=== PATIENT | male | born 1930 | race Caucasian/White ===

== ENCOUNTER 2017-03-14 14:13 | Emergency (ER) | payer OTHER, MEDICARE ==
[2017-03-14 14:22] VITALS: BP 128/70; PULSE 63; TEMP 98.8; BMI 25.0
[2017-03-14] MEDS ORDERED: DIPHTH,PERTUSS(ACELL),TET 0.5 ML DISP.SYRIN IM ONE (14:50)
--- NOTE | 2017-03-14 14:50 | PDOC ---
History of Present Illness - History of Present Illness Initial Comments: 03/14/17 14:52 Patient is an 87 year old male, accompanied by son, with significant medical hx of HTN, CVA and pacemaker who is presenting to the ED s/p mechanical fall today. Today the patient was walking inside at his sons house when he tripped over a step going up. The patient states that he fell forward, landing on his face and chest. He sustained a laceration to his chin and complains of rib cage pain. The patient denies trauma to his neck or to the back of his head. He also denies any LOC, weakness, or shortness of breath. Son states that he found the patient one minute after he fell and that he was alert when he found him. The fall was not witnessed otherwise. The patient walks with a walker to ambulate for general assistance. He is temporarily visiting his son. Patient lives in [place] with his . Social Hx: Every day ETOH user, patient has 1-2 alcoholic beverages a day. No tobacco use. No recreational drug use. <Kim Stiles - Last Filed: 03/14/17 14:52> - History of Present Illness Initial Comments: 03/14/17 16:06 According to his son, the patient tripped on a step, struck his chin on the ground, sustaining a laceration. There was no loss of consciousness. He did not strike his head or injure his neck. Remained fully alert.. Physical exam is noted. No pain or injury to the head or neck. Mild pain with compression of the rib cage, without deformity, point tenderness on any of the ribs, and with full breath sounds and no splinting. Procedure note: 1 cm laceration on the chin was scrubbed and irrigated with normal saline, explored. Found to be superficial. No bony defect. Mastication without pain. Ability to fully open the mouth without difficulty After thorough scrubbing and hemostasis with pressure, Dermabond was applied with good edge adhesion. Wound care discussed with the son. Also monitoring of respiratory symptoms and recheck immediately if there is increased chest pain, shortness of breath, or other difficulty breathing. Patient fully alert, in no pain or other discomfort, and ambulatory upon discharge with her son to follow- up as directed <Pineda Perales - Last Filed: 03/14/17 16:10> - General Chief Complaint: Injury Stated Complaint: LAC TO CHIN S/P TRIPPED AND [id number]) Time Seen by Provider: 03/14/17 14:33 Past History <Kim Stiles - Last Filed: 03/14/17 14:52> - Past Medical History Cardiac Disorders: Yes HTN: Yes Other medical history: STEBBINS - Surgical History Cardiac Surgery: Yes (PACE MAKER) - Psycho/Social/Smoking Cessation Hx Anxiety: No Suicidal Ideation: No Smoking History: Never smoked Information on smoking cessation initiated: No Hx Alcohol Use: No Drug/Substance Use Hx: No Substance Use Type: None <Pineda Perales - Last Filed: 03/14/17 16:10> - Past Medical History Allergies/Adverse Reactions: Allergies Allergy/AdvReac Type Severity Reaction Status Date / Time No Known Allergies Allergy Verified 03/14/17 14:15 Home Medications: Ambulatory Orders Unobtainable [Unobtainable] 03/14/17 Review of Systems - Review of Systems Comments:: 03/14/17 15:00 CONSTITUTIONAL: Absent: fever, chills, diaphoresis, generalized weakness, malaise, loss of appetite HEENT: Absent: rhinorrhea, nasal congestion, throat pain, throat swelling, difficulty swallowing, mouth swelling, ear pain, eye pain, visual changes CARDIOVASCULAR: Absent: chest pain, syncope, palpitations, irregular heart rate, lightheadedness , peripheral edema RESPIRATORY: Absent: cough, shortness of breath, dyspnea with exertion, orthopnea, wheezing, stridor, hemoptysis GASTROINTESTINAL: Absent: abdominal pain, abdominal distension, nausea, vomiting, diarrhea, constipation, melena, hematochezia GENITOURINARY: Absent: dysuria, frequency, urgency, hesitancy, hematuria, flank pain, genital pain MUSCULOSKELETAL: Present: rib cage pain Absent: myalgia, arthralgia, joint swelling SKIN: Present: chin laceration Absent: rash, itching, pallor HEMATOLOGIC/IMMUNOLOGIC: Absent: easy bleeding, easy bruising, lymphadenopathy, frequent infections ENDOCRINE: Absent: unexplained weight gain, unexplained weight loss, heat intolerance, cold intolerance NEUROLOGIC: Absent: headache, focal weakness or paresthesia, dizziness, unsteady gait, seizure, mental status changes, bladder or bowel incontinence. PSYCHIATRIC: Absent: anxiety, depression, suicidal or homicidal ideation, hallucinations <Kim Stiles - Last Filed: 03/14/17 14:52> *Physical Exam - Vital Signs Last Vital Signs Temp Pulse Resp BP Pulse Ox 98.8 F 63 18 128/70 96 03/14/17 14:15 03/14/17 14:15 03/14/17 14:15 03/14/17 14:15 03/14/17 14:15 - Physical Exam Comments: 03/14/17 15:00 GENERAL: Patient is awake, alert and in no acute distress. Speech is clear and appropriate. HEAD: Atraumatic and nontender. No sign of any bruising, hematoma, or abrasion. 1 cm superficial laceration of the chin. No mandibular deformity, no difficulty opening the mouth or masticating. HEENT: Pupils are equal round and reactive to light, extraocular movements are intact. The tympanic membranes are clear, no hemotympanum. No facial deformity. No facial bone tenderness or step-off. No nasal septal hematoma. The oropharynx is clear. NECK: The trachea is midline, there is no stridor. There is no midline cervical spine tenderness. There is full range of motion of neck without any pain. No deformity of vertebral bodies. CHEST: Mild pain with compression of the rib cage bilaterally but no rib cage deformity or inflammation visible or palpable. No ecchymosis or abrasions. Equal chest wall expansion bilaterally. No flail segments. Lungs are clear and full to auscultation bilaterally. No splinting on deep inspiration. CARDIOVASCULAR: S1-S2, regular rate and rhythm. No murmurs or rubs. ABDOMEN: Soft, nontender, nondistended. Bowel sounds are normoactive. There is no abdominal or flank ecchymosis. BACK/PELVIS: There is no midline thoracic or lumbosacral spine tenderness or step-off. Pelvis is stable and nontender. EXTREMITIES: There is no extremity deformity or joint swelling. No focal bony tenderness throughout. 2+ distal pulses throughout. NEURO: Alert and oriented x3. Cranial nerves II through XII are intact. 5 out of 5 motor strength x4 extremities. No gross sensory deficits. Finger-nose- finger is intact. No pronator drift. Gait is stable. SKIN: No abrasions, hematomas, lacerations. PSYCH: Affect is appropriate <Kim Stiles - Last Filed: 03/14/17 14:52> - Vital Signs Last Vital Signs Temp Pulse Resp BP Pulse Ox 98.8 F 63 18 128/70 96 03/14/17 14:15 03/14/17 14:15 03/14/17 14:15 03/14/17 14:15 03/14/17 14:15 <Pineda Perales - Last Filed: 03/14/17 16:10> *DC/Admit/Observation/Transfer - Attestations Scribe Attestion: 03/14/17 15:00 Documentation prepared by Kim Stiles, acting as medical technologist for Pineda Bonner MD. <Kim Stiles - Last Filed: 03/14/17 14:52> - Discharge Dispostion Admit: No <Pineda Perales - Last Filed: 03/14/17 16:10> Diagnosis at time of Disposition: Facial laceration Qualifiers: Encounter type: initial encounter Qualified Code(s): S01.81XA - Laceration without foreign body of other part of head, initial encounter Contusion of ribs Qualifiers: Encounter type: initial encounter Laterality: unspecified laterality Qualified Code(s): S20.219A - Contusion of unspecified front wall of thorax, initial encounter - Discharge Dispostion Disposition: HOME Condition at time of disposition: Improved - Patient Instructions Printed Discharge Instructions: DI for Laceration Repair With Dermabond, DI for Rib Contusion Additional Instructions: Soft diet. Wound care is discussed. Observed closely for increased pain or difficulty breathing, and recheck immediately if this is the case. Otherwise follow up with primary physician in about one week.
== END 2017-03-14 15:10 | disposition home or self-care (01) ==
LOC: FER 14:13
PROC: 0HQ1XZZ Repair Face Skin, External Approach (ICD-10-PCS; principal; 2017-03-14)
PROC: 3E0234Z Introduction of Serum, Toxoid and Vaccine into Muscle, Percutaneous Approach (ICD-10-PCS; 2017-03-14)
DX: S01.81XA Laceration without foreign body of other part of head, initial encounter (principal); S20.219A Contusion of unspecified front wall of thorax, initial encounter; W10.9XXA Fall (on) (from) unspecified stairs and steps, initial encounter; Y93.89 Activity, other specified; Y92.009 Unspecified place in unspecified non-institutional (private) residence as the place of occurrence of the external cause; I10 Essential (primary) hypertension; I51.9 Heart disease, unspecified; Z95.0 Presence of cardiac pacemaker
CPT/HCPCS: 90715; 99282-25